=== PATIENT | female | born 1940 | race Asian ===

== ENCOUNTER 2018-03-20 21:27 | Inpatient (IN) | payer OTHER ==
[2018-03-20] MEDS: ONDANSETRON 4 MG INJ IV (23:54)
[2018-03-20 23:56] LABS: ADD MAN DIFF? NO
[2018-03-20 23:58] LABS: WHITE BLOOD COUNT 7.8 10^3/ul (4.8-10.8)
[2018-03-20 23:58] LABS: BASOPHIL # 0.1 10^3/ul (0.0-0.1); BASOPHILS % 0.9 % (0.0-2.0); EOSINOPHILS # 0.3 10^3/ul (0.0-0.5); EOSINOPHILS % 3.3 % (0.0-7.0); HEMATOCRIT 34.3 % (37.0-47.0); HEMOGLOBIN 11.1 g/dl (12.0-16.0); LYMPHOCYTES # 1.7 10^3/ul (0.8-2.9); LYMPHOCYTES % 22.1 % (15.0-51.0); MEAN CORPUSCULAR HEMOGLOBIN 27.9 pg (29.0-33.0); MEAN CORPUSCULAR HGB CONC 32.4 g/dl (32.0-37.0); MEAN CORPUSCULAR VOLUME 86.2 fl (82.0-101.0); MEAN PLATELET VOLUME 9.4 fl (7.4-10.4); MONOCYTE # 0.6 10^3/ul (0.3-0.9); NEUTROPHIL # 5.1 10^3/ul (1.6-7.5); NEUTROPHILS % 65.3 % (39.0-77.0); PLATELET COUNT 257 10^3/UL (140-415); RED BLOOD COUNT 3.98 10^6/ul (4.20-5.40); RED CELL DISTRIBUTION WIDTH 15.5 % (11.5-14.5)
[2018-03-21 00:17] LABS: ALANINE AMINOTRANSFERASE 35 IU/L (13-69); ALBUMIN 3.5 g/dl (3.3-4.9); ALBUMIN/GLOBULIN RATIO 0.94; ALKALINE PHOSPHATASE 131 IU/L (42-121); ANION GAP 18 (8-16); ASPARTATE AMINO TRANSFERASE 47 IU/L (15-46); BILIRUBIN,INDIRECT 0.4 mg/dl (0-1.1); BILIRUBIN,TOTAL 0.4 mg/dl (0.2-1.3); BLOOD UREA NITROGEN 15 mg/dl (7-20); CALCIUM 8.8 mg/dl (8.4-10.2); CARBON DIOXIDE 18 mmol/L (21-31); CHLORIDE 101 mmol/L (97-110); CREATININE 0.76 mg/dl (0.44-1.00); GLUCOSE 194 mg/dl (70-220); POTASSIUM 4.4 mmol/L (3.5-5.1); SODIUM 133 mmol/L (135-144); TOTAL PROTEIN 7.2 g/dl (6.1-8.1)
[2018-03-21 00:18] LABS: INR 1.09; PROTIME 14.2 Sec (11.9-14.9); PT RATIO 1.1
[2018-03-21 00:29] LABS: B-TYPE NATRIURETIC PEPTIDE 4350 PG/ML (0-450); TROPONIN-I < 0.012 ng/ml (0.000-0.120)
[2018-03-21 00:30] LABS: PARTIAL THROMBOPLASTIN TIME 29.8 Sec (23.0-35.0)
[2018-03-21] MEDS: FUROSEMIDE 40 MG INJ IV ×2 (01:17→17:03)
[2018-03-21 01:23] LABS: URINE BLOOD (Dip) POC Negative (NEGATIVE); URINE GLUCOSE (Dip) POC Negative (NEGATIVE); URINE KETONES (Dip) POC Trace (NEGATIVE); URINE LEUKOCYTE EST (Dip) POC Trace (NEGATIVE); URINE NITRITE (Dip) POC Negative (NEGATIVE); URINE TOTAL PROTEIN POC 3+ (NEGATIVE)
[2018-03-21 01:23] LABS: URINE PH (Dip) POC 5.5 (5.0-8.5)
[2018-03-21] MEDS ORDERED: NACL 0.9% 3 ML SYG IV (01:30)
[2018-03-21] MEDS ORDERED: ACETAMINOPHEN 325 MG TAB PO (01:30)
[2018-03-21] MEDS ORDERED: ONDANSETRON 4 MG INJ IV (01:30)
[2018-03-21] MEDS ORDERED: GLUCOSE GEL 15 GRAM TUBE BUCCAL (02:00)
[2018-03-21] MEDS ORDERED: GLUCAGON 1 MG INJ IM (02:00)
[2018-03-21] MEDS ORDERED: DEXTROSE 50% 50 ML SYRINGE IV ×2 (02:00)
[2018-03-21] MEDS: ACCU-CHEK XX (02:00)
[2018-03-21] MEDS ORDERED: GLUCOSE GEL 15 GRAM TUBE PO (02:00)
[2018-03-21] MEDS: PANTOPRAZOLE (EC) 40 MG TAB PO (06:12)
[2018-03-21] MEDS: FUROSEMIDE 20 MG INJ IV (06:13)
[2018-03-21] MEDS: INSULIN ASPART [NOVOLOG] 3 ML PEN SC ×4 (08:00→21:00)
[2018-03-21] MEDS: ASPIRIN (EC) 81 MG TAB PO (08:22)
[2018-03-21] MEDS: METHIMAZOLE 5 MG TAB PO (08:22)
[2018-03-21] MEDS: AMIODARONE 200 MG TAB PO (08:23)
[2018-03-21] MEDS: HEPARIN 5,000 UNIT/0.5 ML VIAL SC (08:25)
[2018-03-21] MEDS: INSULIN GLARGINE [LANTus] (100 UNITS/ML) SYG SC (08:26)
[2018-03-21] MEDS ORDERED: NON-FORMULARY/PATIENT OWN MED (Carvedilol* 6.25 MG) PO (09:00)
[2018-03-21] MEDS ORDERED: NON-FORMULARY/PATIENT OWN MED (Omeprazole* 40 MG) PO (09:00)
[2018-03-21] MEDS ORDERED: METHYLPREDNISOLONE 125 MG INJ IV (09:30)
[2018-03-21] MEDS: NIFEdipine (XL) 30 MG TAB PO (11:27)
[2018-03-21] MEDS: GLUCOSE GEL 15 GRAM TUBE PO (11:35)
[2018-03-21 12:04] LABS: HEMOGLOBIN A1C 7.6 % (0-5.9)
[2018-03-21 12:15] LABS: ALANINE AMINOTRANSFERASE 38 IU/L (13-69); ALBUMIN 2.8 g/dl (3.3-4.9); ALBUMIN/GLOBULIN RATIO 0.87; ALKALINE PHOSPHATASE 99 IU/L (42-121); ANION GAP 14 (8-16); ASPARTATE AMINO TRANSFERASE 41 IU/L (15-46); BILIRUBIN,INDIRECT 0.3 mg/dl (0-1.1); BILIRUBIN,TOTAL 0.3 mg/dl (0.2-1.3); BLOOD UREA NITROGEN 14 mg/dl (7-20); CALCIUM 8.2 mg/dl (8.4-10.2); CARBON DIOXIDE 25 mmol/L (21-31); CHLORIDE 102 mmol/L (97-110); CREATINE KINASE 36 IU/L (23-200); CREATININE 0.77 mg/dl (0.44-1.00); GLUCOSE 64 mg/dl (70-220); MAGNESIUM 1.6 mg/dl (1.7-2.5); POTASSIUM 3.7 mmol/L (3.5-5.1); SODIUM 137 mmol/L (135-144)
[2018-03-21 12:27] LABS: B-TYPE NATRIURETIC PEPTIDE 4280 PG/ML (0-450); CK INDEX 2.5; CK-MB 0.91 ng/ml (0.0-2.4); TROPONIN-I < 0.012 ng/ml (0.000-0.120)
[2018-03-21 12:36] LABS: FREE T4 (FREE THYROXINE) 3.11 ng/dl (0.78-2.44)
[2018-03-21 12:51] LABS: THYROID STIMULATING HORMONE < 0.015 MIU/L (0.465-4.680)
[2018-03-21] MEDS: ALBUTEROL/IPRATROPIUM (NEB) 3 ML AMP HHN (15:46)
[2018-03-21] MEDS: LISINOPRIL 5 MG TAB PO (17:03)
[2018-03-21] MEDS: MAGNESIUM SULFATE 2 GM/50 ML 50 ML IVPB (17:33)
[2018-03-21] MEDS: MONTELUKAST 10 MG TAB PO (20:36)
[2018-03-21] MEDS: ATORVASTATIN 20 MG TAB PO (20:36)
[2018-03-21] MEDS: APIXABAN 5 MG TABLET PO (20:36)
[2018-03-21] MEDS ORDERED: NON-FORMULARY/PATIENT OWN MED (Simvastatin* (Zocor*) 40 MG) PO (21:00)
[2018-03-22] MEDS: ACCU-CHEK XX (02:00)
[2018-03-22 06:04] LABS: ADD MAN DIFF? NO
[2018-03-22] MEDS: FUROSEMIDE 40 MG INJ IV ×2 (06:04→17:31)
[2018-03-22] MEDS: PANTOPRAZOLE (EC) 40 MG TAB PO (06:05)
[2018-03-22 06:07] LABS: WHITE BLOOD COUNT 7.4 10^3/ul (4.8-10.8)
[2018-03-22 06:07] LABS: BASOPHIL # 0.1 10^3/ul (0.0-0.1); BASOPHILS % 0.7 % (0.0-2.0); EOSINOPHILS # 0.7 10^3/ul (0.0-0.5); EOSINOPHILS % 9.4 % (0.0-7.0); HEMATOCRIT 31.6 % (37.0-47.0); HEMOGLOBIN 10.3 g/dl (12.0-16.0); LYMPHOCYTES # 1.5 10^3/ul (0.8-2.9); LYMPHOCYTES % 20.8 % (15.0-51.0); MEAN CORPUSCULAR HEMOGLOBIN 28.4 pg (29.0-33.0); MEAN CORPUSCULAR HGB CONC 32.6 g/dl (32.0-37.0); MEAN CORPUSCULAR VOLUME 87.1 fl (82.0-101.0); MEAN PLATELET VOLUME 9.2 fl (7.4-10.4); MONOCYTE # 0.7 10^3/ul (0.3-0.9); MONOCYTES % 8.8 % (0.0-11.0); NEUTROPHIL # 4.5 10^3/ul (1.6-7.5); PLATELET COUNT 215 10^3/UL (140-415); RED BLOOD COUNT 3.63 10^6/ul (4.20-5.40); RED CELL DISTRIBUTION WIDTH 15.8 % (11.5-14.5)
[2018-03-22 06:41] LABS: ALANINE AMINOTRANSFERASE 31 IU/L (13-69); ALBUMIN 2.9 g/dl (3.3-4.9); ALKALINE PHOSPHATASE 113 IU/L (42-121); ANION GAP 10 (8-16); ASPARTATE AMINO TRANSFERASE 41 IU/L (15-46); BILIRUBIN,INDIRECT 0.2 mg/dl (0-1.1); BILIRUBIN,TOTAL 0.2 mg/dl (0.2-1.3); BLOOD UREA NITROGEN 19 mg/dl (7-20); CALCIUM 7.9 mg/dl (8.4-10.2); CARBON DIOXIDE 27 mmol/L (21-31); CHLORIDE 105 mmol/L (97-110); CREATININE 0.88 mg/dl (0.44-1.00); GLUCOSE 54 mg/dl (70-220); MAGNESIUM 2.1 mg/dl (1.7-2.5); POTASSIUM 3.7 mmol/L (3.5-5.1); SODIUM 138 mmol/L (135-144); TOTAL PROTEIN 5.8 g/dl (6.1-8.1)
[2018-03-22 06:55] LABS: CHOLESTEROL 116 mg/dl (100-200)
[2018-03-22 06:55] LABS: CHOL/HDL RATIO 3.7 RATIO; HDL CHOLESTEROL 31 mg/dl (33-92); LDL CHOLESTEROL,CALCULATED 69 mg/dl; TRIGLYCERIDES 82 mg/dl (0-149)
[2018-03-22 07:25] LABS: PHOSPHORUS 6.5 mg/dl (2.5-4.9)
[2018-03-22] MEDS: INSULIN ASPART [NOVOLOG] 3 ML PEN SC ×4 (07:54→20:16)
[2018-03-22] MEDS: LISINOPRIL 5 MG TAB PO (08:22)
[2018-03-22] MEDS: METHIMAZOLE 5 MG TAB PO (08:22)
[2018-03-22] MEDS: APIXABAN 5 MG TABLET PO ×2 (08:22→20:16)
[2018-03-22] MEDS: INSULIN GLARGINE [LANTus] (100 UNITS/ML) SYG SC (08:39)
[2018-03-22] MEDS: GUAIFENESIN/DM 5ML CUP PO ×3 (11:58→20:22)
[2018-03-22] MEDS: ATORVASTATIN 20 MG TAB PO (20:16)
[2018-03-22] MEDS: MONTELUKAST 10 MG TAB PO (20:16)
[2018-03-22] MEDS: ALBUTEROL/IPRATROPIUM (NEB) 3 ML AMP HHN (23:02)
[2018-03-23] MEDS: ACCU-CHEK XX (02:00)
[2018-03-23] MEDS: PANTOPRAZOLE (EC) 40 MG TAB PO (06:26)
[2018-03-23] MEDS: FUROSEMIDE 40 MG INJ IV ×2 (06:26→17:06)
[2018-03-23 06:56] LABS: ANION GAP 13 (8-16); BLOOD UREA NITROGEN 28 mg/dl (7-20); CALCIUM 7.7 mg/dl (8.4-10.2); CARBON DIOXIDE 27 mmol/L (21-31); CHLORIDE 99 mmol/L (97-110); CREATININE 1.04 mg/dl (0.44-1.00); GLUCOSE 120 mg/dl (70-220); MAGNESIUM 1.9 mg/dl (1.7-2.5); POTASSIUM 3.4 mmol/L (3.5-5.1); SODIUM 136 mmol/L (135-144)
[2018-03-23] MEDS: INSULIN ASPART [NOVOLOG] 3 ML PEN SC ×5 (07:43→20:22)
[2018-03-23] MEDS: METHIMAZOLE 5 MG TAB PO (08:06)
[2018-03-23] MEDS: LISINOPRIL 5 MG TAB PO (08:07)
[2018-03-23] MEDS: APIXABAN 5 MG TABLET PO ×2 (08:07→20:21)
[2018-03-23] MEDS: GUAIFENESIN/DM 5ML CUP PO ×2 (10:00→17:06)
[2018-03-23] MEDS: POTASSIUM CHLORIDE (SR) 20 MEQ TAB PO (11:03)
[2018-03-23] MEDS: BENZONATATE 100 MG CAP PO ×2 (11:44→20:22)
[2018-03-23] MEDS: MONTELUKAST 10 MG TAB PO (20:21)
[2018-03-23] MEDS: ATORVASTATIN 20 MG TAB PO (20:21)
[2018-03-24] MEDS: PANTOPRAZOLE (EC) 40 MG TAB PO (06:05)
[2018-03-24 06:12] LABS: ANION GAP 13 (8-16); BLOOD UREA NITROGEN 27 mg/dl (7-20); CALCIUM 7.6 mg/dl (8.4-10.2); CARBON DIOXIDE 29 mmol/L (21-31); CHLORIDE 102 mmol/L (97-110); CREATININE 0.87 mg/dl (0.44-1.00); GLUCOSE 118 mg/dl (70-220); MAGNESIUM 1.8 mg/dl (1.7-2.5); POTASSIUM 3.7 mmol/L (3.5-5.1); SODIUM 140 mmol/L (135-144)
[2018-03-24] MEDS: INSULIN ASPART [NOVOLOG] 3 ML PEN SC ×7 (07:35→21:34)
[2018-03-24] MEDS: METHIMAZOLE 5 MG TAB PO (08:08)
[2018-03-24] MEDS: BENZONATATE 100 MG CAP PO (08:08)
[2018-03-24] MEDS: APIXABAN 5 MG TABLET PO ×2 (08:09→21:31)
[2018-03-24] MEDS: FUROSEMIDE 40 MG TAB PO (08:09)
[2018-03-24] MEDS: LISINOPRIL 5 MG TAB PO (08:09)
[2018-03-24] MEDS: GUAIFENESIN/DM 5ML CUP PO ×2 (12:50→21:30)
[2018-03-24] MEDS: ATORVASTATIN 20 MG TAB PO (21:30)
[2018-03-24] MEDS: MONTELUKAST 10 MG TAB PO (21:31)
[2018-03-25] MEDS: PANTOPRAZOLE (EC) 40 MG TAB PO (06:02)
[2018-03-25] MEDS: INSULIN ASPART [NOVOLOG] 3 ML PEN SC ×7 (07:42→21:00)
[2018-03-25] MEDS: LISINOPRIL 5 MG TAB PO (08:08)
[2018-03-25] MEDS: METHIMAZOLE 5 MG TAB PO (08:09)
[2018-03-25] MEDS: FUROSEMIDE 40 MG TAB PO (08:09)
[2018-03-25] MEDS: APIXABAN 5 MG TABLET PO ×2 (08:09→21:04)
[2018-03-25] MEDS: GUAIFENESIN/DM 5ML CUP PO (08:51)
[2018-03-25] MEDS: BENZONATATE 100 MG CAP PO (11:20)
[2018-03-25 13:03] LABS: Allen Test ACCEPTAB; Arterial Base Excess 3.6 mmol/L (-3.0-3); Arterial COHb 0.2 % (0.0-3.0); Arterial Fraction of Oxyhgb 88.6 % (93.0-99.0); Arterial HCO3 27.2 mmol/L (22.0-26.0); Arterial MetHb 0.2 % (0.0-1.5); Arterial Total Hemglobin 11.2 g/dl (12.0-18.0); Arterial pCO2 37.6 mmhg (35-45); MODE ROOM AIR; Site Right Radial
[2018-03-25] MEDS: ALBUTEROL/IPRATROPIUM (NEB) 3 ML AMP HHN ×3 (13:13→20:00)
[2018-03-25] MEDS: SOD CHLORIDE 0.9% 100 ML (19:22)
[2018-03-25] MEDS: IOHEXOL 100 ML (19:22)
[2018-03-25] MEDS: ATORVASTATIN 20 MG TAB PO (21:04)
[2018-03-25] MEDS: MONTELUKAST 10 MG TAB PO (21:04)
[2018-03-26] MEDS: ALBUTEROL/IPRATROPIUM (NEB) 3 ML AMP HHN ×5 (05:27→17:10)
[2018-03-26] MEDS: PANTOPRAZOLE (EC) 40 MG TAB PO (06:26)
[2018-03-26] MEDS: INSULIN ASPART [NOVOLOG] 3 ML PEN SC ×6 (07:37→18:19)
[2018-03-26] MEDS: METHIMAZOLE 5 MG TAB PO (08:14)
[2018-03-26] MEDS: APIXABAN 5 MG TABLET PO (08:15)
[2018-03-26] MEDS: FUROSEMIDE 40 MG TAB PO (08:15)
[2018-03-26] MEDS: SOD CHLORIDE 0.9% 100 ML ×2 (10:46→17:16)
[2018-03-26] MEDS: IOHEXOL 100 ML ×2 (10:46→17:16)
== END 2018-03-26 19:11 | disposition home or self-care (01) | DRG 292 ==
LOC: 6WM 03-21 00:37 → E/R 21:27
DX: I11.0 Hypertensive heart disease with heart failure (principal); J96.11 Chronic respiratory failure with hypoxia; I50.33 Acute on chronic diastolic (congestive) heart failure; I27.29 Other secondary pulmonary hypertension; E78.5 Hyperlipidemia, unspecified; I25.10 Atherosclerotic heart disease of native coronary artery without angina pectoris; Z95.0 Presence of cardiac pacemaker; J45.909 Unspecified asthma, uncomplicated; I48.2 Chronic atrial fibrillation; E05.90 Thyrotoxicosis, unspecified without thyrotoxic crisis or storm; J84.10 Pulmonary fibrosis, unspecified
CPT/HCPCS: 36415; 36600; 71045; 71275; 74018; 76705; 80048; 80053; 80061; 81003; 82550; 82553; 82803; 82962; 83036; 83735; 83880; 84100; 84439; 84443; 84484; 85025; 85610; 85730; 93005; 93306; 93970; 94640; 94664; 96374; 99285-25

== ENCOUNTER 2018-05-19 12:45 | Emergency (ER) | payer SELFPAY, OTHER | END 2018-05-19 19:54 | disposition left against medical advice (07) | LOC: E/R 12:45 | DX: Z53.21 Procedure and treatment not carried out due to patient leaving prior to being seen by health care provider (principal) ==